=== PATIENT | male | born 1990 | race Caucasian/White ===

== ENCOUNTER 2019-03-12 17:13 | Emergency (ER) | payer SELFPAY ==
[~2019-03-12] VITALS: Ht 172.7 cm; Wt 65.0 kg
[2019-03-12 17:25] VITALS: Ht 172.7 cm; Wt 65.0 kg
--- NOTE | 2019-03-12 17:56 | ERD ---
ER Documentation Chief Complaint Chief Complaint HEROIN OVERDOSE, GIVEN NARCAN IM X 2 BY EMS. HPI This is a 28-year-old male who presents to the emergency room for evaluation after overdose of heroin. According EMS the patient was unresponsive and was given 2 mg IM of Narcan. The patient states that he did use IV heroin today. He states that he has had previous overdoses. He has no complaints at this time, no shortness of breath no nausea no vomiting no chest pain ROS All systems reviewed and are negative except as per history of present illness. Allergies Allergies: Coded Allergies: No Known Allergy (Unverified , 03/12/19) PMhx/Soc Medical and Surgical Hx: pt denies Medical Hx, pt denies Surgical Hx Hx Alcohol Use: No Hx Substance Use: Yes (HEROIN) Hx Tobacco Use: No Smoking Status: Never smoker Physical Exam Vitals Vital Signs Date Temp Pulse Resp B/P (MAP) Pulse Ox O2 O2 Flow FiO2 Time Delivery Rate 03/12/19 98.4 135 20 164/106 99 Room Air 17:25 (125) 03/12/19 98.4 135 20 164/106 99 17:25 (125) Physical Exam Const: No acute distress Head: Atraumatic Eyes: Normal Conjunctiva ENT: Normal External Ears, Nose and Mouth. Neck: Full range of motion. No meningismus. Resp: Clear to auscultation bilaterally Cardio: Regular rate and rhythm, no murmurs Abd: Soft, non tender, non distended. Normal bowel sounds Skin: No petechiae or rashes Back: No midline or flank tenderness Ext: No cyanosis, or edema Neur: Awake and alert Psych: Normal Mood and Affect Procedures/MDM This 28-year-old male presents to the emergency room for evaluation after heroin overdose. Patient was given Narcan IM. On my evaluation the patient is alert and oriented to person place and time, he has no focal neurological deficits. The patient is intercourse is appropriately, he is not hypoxic, has no respiratory depression. Patient will be discharged at this time with instructions to discontinue the use of heroin Departure Diagnosis: Primary Impression: Accidental overdose Additional Impression: Heroin overdose Condition: SPRING Castro DO Mar 12, 2019 17:55
[2019-03-12] MEDS ORDERED: SOD CHLORIDE 0.9% 1,000 ML IV STA (17:57)
[2019-03-12 18:04] VITALS: BP 146/82; PULSE 131; RESP 20
== END 2019-03-12 19:04 | disposition home or self-care (01) ==
LOC: E/R 17:13
DX: T40.1X1A Poisoning by heroin, accidental (unintentional), initial encounter (principal)
CPT/HCPCS: 96360; 99284; J7030